=== PATIENT | male | born 1945 | race Caucasian/White ===

== ENCOUNTER 2022-02-15 11:18 | Emergency (ER) | payer MEDICARE, BC ==
[2022-02-15 12:16] LABS: ESTIMATED GFR 77 mL/min (>60)
== END 2022-02-15 13:01 ==
LOC: LB.ED 11:18
DX: R20.2 Paresthesia of skin (principal); R20.0 Anesthesia of skin; Z20.822 Contact with and (suspected) exposure to COVID-19
CPT/HCPCS: 36415; 70450; 80053; 85025; 85730; 93005; 99285; U0002